=== PATIENT | male | born 1940 | race Caucasian/White ===

== ENCOUNTER 2024-04-06 08:40 | Outpatient (CLI) | payer MEDICARE, SELFPAY | END 2024-04-06 08:41 | disposition home or self-care (01) | LOC: NFLDREF 04-10 13:56 | PROVIDERS: PCP Family Medicine; Referring Provider Family Medicine; Visit Provider Family Medicine | DX: Z00.00 Encounter for general adult medical examination without abnormal findings (principal); E78.5 Hyperlipidemia, unspecified; I10 Essential (primary) hypertension; D12.6 Benign neoplasm of colon, unspecified; Z13.1 Encounter for screening for diabetes mellitus; Z12.5 Encounter for screening for malignant neoplasm of prostate | CPT/HCPCS: 80053; 80061; G0103 ==

== ENCOUNTER 2025-04-12 09:01 | Outpatient (CLI) | payer MEDICARE, SELFPAY | END 2025-04-12 09:02 | disposition home or self-care (01) | LOC: NFLDREF 04-15 09:45 | PROVIDERS: PCP Family Medicine; Referring Provider Family Medicine; Visit Provider Family Medicine | DX: I10 Essential (primary) hypertension (principal); E78.5 Hyperlipidemia, unspecified; Z12.5 Encounter for screening for malignant neoplasm of prostate | CPT/HCPCS: 80053; 80061; G0103 ==

== ENCOUNTER 2025-10-24 14:43 | Outpatient (CLI) | payer MEDICARE, SELFPAY | END 2025-10-24 14:44 | disposition home or self-care (01) | LOC: LKVREF 14:44 | PROVIDERS: PCP Family Medicine; Visit Provider Family Medicine | DX: I10 Essential (primary) hypertension (principal); E11.9 Type 2 diabetes mellitus without complications | CPT/HCPCS: 80048; 82043; 82570 ==